=== PATIENT | female | born 1990 | race African-American/Black ===

== ENCOUNTER 2025-02-05 13:41 | Emergency (ER) | payer OTHER ==
[2025-02-05] MEDS ORDERED: Ketorolac Tromethamine 30 MG (1 mL) VIAL ONE (14:57)
== END 2025-02-05 15:18 | disposition home or self-care (01) ==
LOC: ERS 13:41
DX: R11.10 Vomiting, unspecified (principal); K42.9 Umbilical hernia without obstruction or gangrene
CPT/HCPCS: 96374; 99283; J1885; Q0162